=== PATIENT | female | born 1940 | race Caucasian/White ===

== ENCOUNTER 2021-04-23 10:54 | Outpatient (CLI) | payer MEDICARE, BC | END 2021-04-23 10:55 | disposition home or self-care (01) | LOC: CSHMRI 10:54 | PROVIDERS: ATTEND Neurological Surgery | DX: D32.9 Benign neoplasm of meninges, unspecified (principal); G93.89 Other specified disorders of brain | CPT/HCPCS: 70553 ==

== ENCOUNTER 2022-03-19 11:22 | Outpatient (CLI) | payer MEDICARE, BC ==
[~2022-03-19 11:22] MED LIST: Magnevist 469MG/ML 20 ML VIAL ONE
== END 2022-03-19 11:23 | disposition home or self-care (01) ==
LOC: CSHMRI 11:22
PROVIDERS: ATTEND Neurological Surgery
DX: D32.9 Benign neoplasm of meninges, unspecified (principal)
CPT/HCPCS: 70553; 82565